=== PATIENT | male | born 1975 | race Caucasian/White ===

== ENCOUNTER 2019-08-25 05:50 | Day surgery (SDC) | payer OTHER ==
[~2019-08-25] VITALS: Ht 182.9 cm; Wt 74.8 kg
[~2019-08-25 05:50] MED LIST: CYCLOBENZAPRINE10 MG PO; IBUPROFEN800 MG; TRAMADOL HCL50 MG PO
[2019-08-25] MEDS ORDERED: HYDROCODON-ACE1 EA11 PO (07:32)
--- NOTE | 2019-08-25 07:46 | NUR ---
08/25/19 0746 Lay Marquez 0730-PT ARRIVES TO PACU WITH OPA IN PLACE. NO FOGGING IN MASK PRESENT. JAW THRUST PERFORMED BY MAYA RN AND RESUMED BY JOSE MARTIN NIELSEN. OPA IN PLACE EXCHANGED FOR LONGER OPA AND FOGGING IN MASK PRESENT. 0735-PT WAKES WITH OPA REPLACEMENT. PT COUGHS AND TRIES TO CLEAR AIRWAY. SUCTION USED. PT SITS UP AND OPENS EYES. FALLS BACK ASLEEP EASILY. SATS >90%. VSS. 6 L O2 CONTINUED.
--- NOTE | 2019-08-25 10:15 | NUR ---
1005 RIDE HERE DCD PER WC.
--- NOTE | 2019-08-25 10:15 | NUR ---
0920 CALLING RIDE. TO WAIT FOR THEM.
--- NOTE | 2019-08-28 09:01 | OR ---
[facility] [address], [place] [address] Signed DATE OF OPERATION: 08/25/2019 SURGEON: Hudson Vargas MD PREOPERATIVE DIAGNOSIS: Left distal radius fracture displaced. POSTOPERATIVE DIAGNOSIS: Left distal radius fracture displaced. PROCEDURE PERFORMED: Closed reduction and percutaneous pinning of left distal radius. FLATWORK FINISHER: None. ANESTHESIA: General. BLOOD LOSS: Minimal. IMPLANTS: Three 1.6 K-wires. BRIEF HISTORY: Manny is a 43-year-old gentleman suffered a fall about 10 feet off a small . He suffered a distal radius fracture about two weeks ago. He did this in [place] and finally returned home. Initially, he had no insurance, however, was cleared by insurance to proceed with surgical reduction and pinning. The entire distal radius articular surface was intact. The fracture was just above that. I felt that a closed reduction percutaneous pinning even if we got is a slightly less than anatomic reduction would be adequate to heal this and restore his function. Risks and benefits of this were discussed with him at length and he understood and wished to proceed. DESCRIPTION OF PROCEDURE: Once consent was obtained, he was taken to the operating room after adequate anesthesia. He was placed on operating room table. All downside pressure points were well padded. The left arm was prepped and draped in a standard sterile fashion. Closed reduction was attempted and was partially successful. However, it was still and I placed a Electronically Signed By: HUDSON VARGAS MD 08/28/19 0901 PATIENT NAME: MANNY MCKEON SR OPERATIVE REPORT DATE OF : 75 REPORT #: [id number] PHYSICIAN: HUDSON VARGAS MD PCP: UNASSIGNED DOCTOR REPORT IS CONFIDENTIAL AND NOT TO BE RELEASED WITHOUT AUTHORIZATION [facility] [address] [place] [id number] Signed percutaneous pin dorsally through the fracture and using it to shoe horn the fracture into position, we were able to hold it in position, placed the 1st K-wire from the radial styloid across the fracture site engaging the body of the radius proximally. Second pin was placed in the tubercle dorsally and again passing over the fracture and engaging the body. Third pin was placed in the radial styloid obliquely to the first wound. All three pins were cut and bent. Final radiographs showed good reduction, although it was not anatomic. There was slight radial offset. The fracture was quite stable under fluoroscopy. The pins were dressed with sterile gauze and a radial gutter splint. He tolerated the procedure well. All sponge, needle, and instrument counts were correct. Hudson Vargas MD BA/JACE /[id number] Copies: ~ Electronically Signed By: HUDSON VARGAS MD 08/28/19 0901 PATIENT NAME: MANNY MCKEON BREA BURGOS OPERATIVE REPORT DATE OF : 75 REPORT #: [id number] PHYSICIAN: HUDSON VARGAS MD PCP: UNASSIGNED DOCTOR REPORT IS CONFIDENTIAL AND NOT TO BE RELEASED WITHOUT AUTHORIZATION
== END 2019-08-25 10:10 | disposition home or self-care (01) ==
LOC: DS 05:50
PROVIDERS: Specialist
PROC: 0PSJ34Z Reposition Left Radius with Internal Fixation Device, Percutaneous Approach (ICD-10-PCS; principal; 2019-08-25 06:45)
DX: S52.502A Unspecified fracture of the lower end of left radius, initial encounter for closed fracture (principal); W01.0XXA Fall on same level from slipping, tripping and stumbling without subsequent striking against object, initial encounter
CPT/HCPCS: 01820; 64417; 73100; 76942; A9270; J0690; J1100; J1885; J2001; J2250; J2405; J2704; J2795; J7121